=== PATIENT | female | born 1955 | race Caucasian/White ===

== ENCOUNTER 2017-05-07 09:06 | Day surgery (SDC) | payer MEDICARE, MEDICAID, SELFPAY ==
[2017-05-02 15:49] VITALS: BMI 19.8
--- NOTE | 2017-05-03 13:45 | SUR.PREOP ---
Addendum entered by Diana Schilling RN 05/04/17 14:22: PHONE CONSENT OBTAINED Original Note: Diana Schilling 05/02/17 15:59 EST:[employer] OF STATE WILL NEED TO CALL [facility] [phone] Diana Schilling 05/03/17 13:43 EST:left voicemail for state guardianship for need to obtain phone consent for egd.
[2017-05-07] VITALS (7 sets, daily range): BP systolic 131–168; BP diastolic 68–98; PULSE 83–98; RESP 16–18; TEMP 36.4–36.9; O2SAT 94–100
--- NOTE | 2017-05-07 10:13 | HMH.ANESCL ---
[facility] Anesthesia Checklist - Patient Identification Patient Identification: Arm Band, Verbal (Name & ) - Structural Data Admitted From: Long-term Nursing Facility Planned Operative Procedure/s: egd/colon Consent for Planned Operative Procedure(s) Verified: Yes Verified Documents: Surgical Consent - NPO Status Verified Time NPO: 00:00 - Chart Verification Results Verified: None - Additional verifications Patient : No Anesthesia Reactions: No Hx Blood Transfusions: No Blood Transfusion Reaction: No Cephalosporin Allergy: No Previous Colonoscopy: No - Cardiovascular Assessment Pulse Strength: Strong Pulse Rhythm: Regular Peripheral Edema: No - Airway Assessment C-Spine Mobility Assessed: Yes TMJ Mobility Assessed: Yes Dentition: Edentulous - Neurological Assessment Level of Consciousness: Awake, Follows Commands Hx Seizures: No Numbness or tingling in extremities: No - Anesthesia Plan Anesthesia Risk discussed: Yes Anesthesia Plan: Verified ASA Class: II Anesthesia Type: MAC [facility] Anesthesia HX I have reviewed the patient's past medical history: Yes Medical History: Reports:: Hyperlipidemia, Hypertension (medicated) Denies:: Diabetes Mellitus Type 1, Diabetes Mellitus Type 2, Seizures Other Surgeries: No: Pacemaker Amputation: No Fractures: No *Family Hx:: Unable to obtain
--- NOTE | 2017-05-07 10:16 | P.PN_ITS ---
[facility] Anesthesia Checklist - Patient Identification Patient Identification: Arm Band, Verbal (Name & ) - Structural Data Admitted From: Long-term Nursing Facility Planned Operative Procedure/s: egd/colon Consent for Planned Operative Procedure(s) Verified: Yes Verified Documents: Surgical Consent - NPO Status Verified Time NPO: 00:00 - Chart Verification Results Verified: None - Additional verifications Patient : No Anesthesia Reactions: No Hx Blood Transfusions: No Blood Transfusion Reaction: No Cephalosporin Allergy: No Previous Colonoscopy: No - Cardiovascular Assessment Pulse Strength: Strong Pulse Rhythm: Regular Peripheral Edema: No - Airway Assessment C-Spine Mobility Assessed: Yes TMJ Mobility Assessed: Yes Dentition: Edentulous - Neurological Assessment Level of Consciousness: Awake, Follows Commands Hx Seizures: No Numbness or tingling in extremities: No - Anesthesia Plan Anesthesia Risk discussed: Yes Anesthesia Plan: Verified ASA Class: II Anesthesia Type: MAC [facility] Anesthesia HX I have reviewed the patient's past medical history: Yes Medical History: Reports:: Hyperlipidemia, Hypertension (medicated) Denies:: Diabetes Mellitus Type 1, Diabetes Mellitus Type 2, Seizures Other Surgeries: No: Pacemaker Amputation: No Fractures: No *Family Hx:: Unable to obtain
--- NOTE | 2017-05-07 11:44 | HMH.PROC ---
[facility] Procedure Note Procedure Note:: Upper Endoscopy Procedure Report: Esophagogastroduodenoscopy with cold biopsy and TTS balloon dilation Endoscopost: Dontae Rice II, MD Referring Physician: Mitchel Boyle MD Date of Procedure: Esophagogastroduodenoscopy with cold biopsies and TTS balloon dilation Equipment: Olympus GIF 180 standard upper endoscope Sedation: MAC sedation Indications: Mrs. Tomlinson is a 61-year-old female who is a poor historian but apparently has had moderate weight loss. She complains of no abdominal pain dysphagia, nausea or vomiting. Procedure: Prior to the procedure, a history and physical exam was performed, and patient's medications and allergies were reviewed. The risks, benefits and alternatives of the sedation and procedure were discussed with the patient. All questions were answered and informed consent was obtained. The patient was brought to the procedure room. Patient identification and proposed procedure were verified by the physician and the nurse. The patient was placed in a left lateral decubitus position and the scope was passed under direct vision. Throughout the procedure, the patient's blood pressure, pulse, and oxygen saturations were monitored continuously. The upper GI endoscopy was accomplished without difficulty. The patient tolerated the procedure well. Findings: The scope was passed directly into the upper esophagus and advanced to the third portion of the duodenum. The post bulbar duodenum and duodenal bulb were normal with normal mucosa and conniventes. The scope was withdrawn through a normal duodenal bulb and pylorus into the stomach. The remainder of the antrum, body and fundus of the stomach were grossly normal. Upon retroflexion there was a small 1-2 cm hiatal hernia. 2 biopsies were taken in the antrum and along the lesser curvature for histology and/or CLOtest. The scope was then withdrawn into the esophagus. There were tertiary contractions and moderate esophageal dysmotility. The entire esophagus was dilated to 60 Moldovan/20 mm with a TTS hydrostatic balloon. There was no evidence of reflux esophagitis or Morales's esophagus. The remainder of the esophageal mucosa was normal. Impression: 1. Esophageal dysmotility/presbyesophagus 2. Mild chronic gastritis Plan: There was no source for the patient's weight loss. I will proceed with colonoscopy. I will follow up the biopsies.
--- NOTE | 2017-05-07 11:48 | SUR.OPER ---
INCOMPLETE COLONOSCOPY DUE TO VERY POOR PREP.
--- NOTE | 2017-05-07 11:50 | HMH.PROC ---
[facility] Procedure Note Procedure Note:: Flexible Sigmoidoscopy Procedure Report: Sigmoidoscopy/unprepped colonoscopy Endoscopist: Dontae Rice II, MD Referring physician: Mitchel Boyle Date of Procedure: May 07, 2017 Equipment: Olympus 180 variable stiffness pediatric colonoscope Sedation: MAC sedation Indication: Mrs. Tomlinson is a 61-year-old female who is here for screening colonoscopy. She reports no abdominal pain, rectal bleeding or family history of colon cancer. She is a poor historian. She has had moderate weight loss according to family. Procedure: Prior to the procedure, a history and physical exam was performed, and patient's medications and allergies were reviewed. The risks, benefits and alternatives of the sedation and procedure were discussed with the patient. All questions were answered and informed consent was obtained. The patient was brought to the procedure room. Patient identification and proposed procedure were verified by the physician and the nurse. The patient was placed in a left lateral decubitus position and the scope was passed under direct vision. Throughout the procedure, the patient's blood pressure, pulse, and oxygen saturations were monitored continuously. The colonoscopy was accomplished without difficulty. The patient tolerated the procedure well. Findings: On digital rectal examination there was normal rectal tone. There were no external hemorrhoids. The scope was inserted through the anal canal into the rectum and advanced less than 10 cm. There was a marked amount of dark liquid and solid stool making the procedural visible field extremely poor and the procedure was aborted because of the unprepped colon. Impression: 1. Unprepped colonoscopy Plan: We will discuss repeating bowel preparation with patient and family.
--- NOTE | 2017-05-07 11:55 | P.PCN_ITS ---
[facility] Procedure Note Procedure Note:: Flexible Sigmoidoscopy Procedure Report: Sigmoidoscopy/unprepped colonoscopy Endoscopist: Dontae Rice II, MD Referring physician: Mitchel Boyle Date of Procedure: May 07, 2017 Equipment: Olympus 180 variable stiffness pediatric colonoscope Sedation: MAC sedation Indication: Mrs. Tomlinson is a 61-year-old female who is here for screening colonoscopy. She reports no abdominal pain, rectal bleeding or family history of colon cancer. She is a poor historian. She has had moderate weight loss according to family. Procedure: Prior to the procedure, a history and physical exam was performed, and patient' s medications and allergies were reviewed. The risks, benefits and alternatives of the sedation and procedure were discussed with the patient. All questions were answered and informed consent was obtained. The patient was brought to the procedure room. Patient identification and proposed procedure were verified by the physician and the nurse. The patient was placed in a left lateral decubitus position and the scope was passed under direct vision. Throughout the procedure, the patient's blood pressure, pulse, and oxygen saturations were monitored continuously. The colonoscopy was accomplished without difficulty. The patient tolerated the procedure well. Findings: On digital rectal examination there was normal rectal tone. There were no external hemorrhoids. The scope was inserted through the anal canal into the rectum and advanced less than 10 cm. There was a marked amount of dark liquid and solid stool making the procedural visible field extremely poor and the procedure was aborted because of the unprepped colon. Impression: 1. Unprepped colonoscopy Plan: We will discuss repeating bowel preparation with patient and family.
== END 2017-05-07 12:50 | disposition home or self-care (01) ==
PROVIDERS: PCP Family Medicine; Visit Provider Internal Medicine Gastroenterology
PROC: 0DJ08ZZ Inspection of Upper Intestinal Tract, Via Natural or Artificial Opening Endoscopic (ICD-10-PCS; CPT 43235; principal; 2017-05-07 10:30)
DX: Z12.11 Encounter for screening for malignant neoplasm of colon (principal); K22.4 Dyskinesia of esophagus; K29.50 Unspecified chronic gastritis without bleeding; R63.4 Abnormal weight loss; Z03.89 Encounter for observation for other suspected diseases and conditions ruled out
CPT/HCPCS: 43239; 43249; 45330; 88305; C1726

== ENCOUNTER → 2017-06-18 08:45 | Day surgery (SDC) | payer MEDICARE, MEDICAID, SELFPAY ==
[2017-06-12 14:31] VITALS: BMI 17.6
[2017-06-18 09:15] VITALS: BP 159/89; PULSE 79; RESP 18; TEMP 36.7; O2SAT 99
--- NOTE | 2017-06-18 11:21 | SUR.PREOP ---
case cancelled per Dr Rice- poor bowel prep, not able to clear with enemas
== END ==
PROVIDERS: PCP Family Medicine; Visit Provider Internal Medicine Gastroenterology
PROC: 0DJD8ZZ Inspection of Lower Intestinal Tract, Via Natural or Artificial Opening Endoscopic (ICD-10-PCS; CPT 45378; principal; 2017-06-18 09:30)
DX: Z12.11 Encounter for screening for malignant neoplasm of colon (principal)
CPT/HCPCS: 99024